=== PATIENT | female | born 1945 | race Caucasian/White ===

== ENCOUNTER 2018-06-11 09:43 | Inpatient (IN) | payer OTHER ==
[2018-06-11] MEDS: SOD CHLORIDE 0.9% 1,000 ML IV ×2 (10:17→12:10)
[2018-06-11] MEDS: METHYLPREDNISOLONE 125 MG INJ IV ×3 (10:17→22:01)
[2018-06-11] MEDS: IPRATROPIUM (NEB) 0.5 MG/2.5 ML AMP INH (10:21)
[2018-06-11] MEDS: ALBUTEROL 0.5% (NEB) 2.5 MG/0.5 ML AMP INH (10:22)
[2018-06-11 10:45] LABS: ADD MAN DIFF? NO
[2018-06-11 10:50] LABS: WHITE BLOOD COUNT 10.3 10^3/ul (4.8-10.8)
[2018-06-11 10:50] LABS: BASOPHIL # 0.1 10^3/ul (0.0-0.1); BASOPHILS % 0.8 % (0.0-2.0); EOSINOPHILS # 0.5 10^3/ul (0.0-0.5); EOSINOPHILS % 5.1 % (0.0-7.0); HEMATOCRIT 37.9 % (37.0-47.0); HEMOGLOBIN 12.5 g/dl (12.0-16.0); LYMPHOCYTES # 3.4 10^3/ul (0.8-2.9); LYMPHOCYTES % 33.2 % (15.0-51.0); MEAN CORPUSCULAR HEMOGLOBIN 30.3 pg (29.0-33.0); MEAN PLATELET VOLUME 10.1 fl (7.4-10.4); MONOCYTE # 0.5 10^3/ul (0.3-0.9); MONOCYTES % 5.1 % (0.0-11.0); NEUTROPHIL # 5.7 10^3/ul (1.6-7.5); NEUTROPHILS % 55.3 % (39.0-77.0); PLATELET COUNT 349 10^3/UL (140-415); RED BLOOD COUNT 4.12 10^6/ul (4.20-5.40)
[2018-06-11 11:08] LABS: ALANINE AMINOTRANSFERASE 26 IU/L (13-69); ALBUMIN 3.8 g/dl (3.3-4.9); ALBUMIN/GLOBULIN RATIO 1.08; ALKALINE PHOSPHATASE 123 IU/L (42-121); ANION GAP 12 (8-16); ASPARTATE AMINO TRANSFERASE 19 IU/L (15-46); BILIRUBIN,INDIRECT 0.3 mg/dl (0-1.1); BILIRUBIN,TOTAL 0.3 mg/dl (0.2-1.3); BLOOD UREA NITROGEN 16 mg/dl (7-20); CARBON DIOXIDE 28 mmol/L (21-31); CHLORIDE 108 mmol/L (97-110); CREATININE 0.73 mg/dl (0.44-1.00); GLUCOSE 115 mg/dl (70-220); INR 0.92; PARTIAL THROMBOPLASTIN TIME 27.9 Sec (23.0-35.0); POTASSIUM 4.3 mmol/L (3.5-5.1); PROTIME 12.4 Sec (11.9-14.9); SODIUM 144 mmol/L (135-144); TOTAL PROTEIN 7.3 g/dl (6.1-8.1)
[2018-06-11 11:18] LABS: TROPONIN-I < 0.012 ng/ml (0.000-0.120)
[2018-06-11] MEDS ORDERED: ACETAMINOPHEN 325 MG TAB PO (12:00)
[2018-06-11] MEDS ORDERED: ONDANSETRON 4 MG INJ IV ×2 (12:00→12:30)
[2018-06-11] MEDS: MAGNESIUM SULFATE 2 GM/50 ML 50 ML IVPB (12:10)
[2018-06-11] MEDS ORDERED: ALBUTEROL/IPRATROPIUM (NEB) 3 ML AMP HHN (12:30)
[2018-06-11] MEDS ORDERED: NACL 0.9% 3 ML SYG IV (12:30)
[2018-06-11] MEDS ORDERED: ACETAMINOPHEN 650 MG SUPP PR (12:30)
[2018-06-11 12:47] LABS: Allen Test ACCEPTAB; Arterial Base Excess -2.5 mmol/L (-3.0-3); Arterial Blood Gas Oxygen Sat 98.4 mmHG (95.0-100.0); Arterial COHb 0.1 % (0.0-3.0); Arterial Fraction of Oxyhgb 98.1 % (93.0-99.0); Arterial HCO3 23.6 mmol/L (22.0-26.0); Arterial MetHb 0.2 % (0.0-1.5); Arterial Total Hemglobin 13.2 g/dl (12.0-18.0); Arterial pCO2 46.2 mmhg (35-45); Blood Gas PS 5; MODE MASK - BIPAP; Site Right Radial
[2018-06-11] MEDS: ALBUTEROL/IPRATROPIUM (NEB) 3 ML AMP HHN ×3 (13:00→21:16)
[2018-06-11] MEDS: FUROSEMIDE 40 MG INJ IV (15:59)
[2018-06-11] MEDS: FAMOTIDINE 20 MG INJ IV (20:31)
[2018-06-11] MEDS: ATORVASTATIN 40 MG TAB PO (20:31)
[2018-06-11] MEDS: CILOSTAZOL 100 MG TAB PO (20:31)
[2018-06-11] MEDS: MONTELUKAST 10 MG TAB PO (20:31)
[2018-06-11] MEDS: EZETIMIBE 10 MG TAB PO (20:31)
[2018-06-12] MEDS: ALBUTEROL/IPRATROPIUM (NEB) 3 ML AMP HHN ×6 (01:30→20:05)
[2018-06-12 06:11] LABS: ADD MAN DIFF? NO
[2018-06-12 06:14] LABS: BASOPHILS % 0.1 % (0.0-2.0); HEMOGLOBIN 11.7 g/dl (12.0-16.0); LYMPHOCYTES # 0.9 10^3/ul (0.8-2.9); LYMPHOCYTES % 10.5 % (15.0-51.0); MEAN CORPUSCULAR HEMOGLOBIN 30.4 pg (29.0-33.0); MEAN CORPUSCULAR HGB CONC 33.4 g/dl (32.0-37.0); MEAN CORPUSCULAR VOLUME 90.9 fl (82.0-101.0); MEAN PLATELET VOLUME 10.2 fl (7.4-10.4); MONOCYTE # 0.2 10^3/ul (0.3-0.9); NEUTROPHIL # 7.2 10^3/ul (1.6-7.5); NEUTROPHILS % 85.9 % (39.0-77.0); PLATELET COUNT 345 10^3/UL (140-415); RED BLOOD COUNT 3.85 10^6/ul (4.20-5.40); RED CELL DISTRIBUTION WIDTH 13.2 % (11.5-14.5)
[2018-06-12 06:14] LABS: WHITE BLOOD COUNT 8.4 10^3/ul (4.8-10.8)
[2018-06-12] MEDS: METHYLPREDNISOLONE 125 MG INJ IV (06:21)
[2018-06-12 06:31] LABS: HEMOGLOBIN A1C 5.8 % (0-5.9)
[2018-06-12 06:55] LABS: ALANINE AMINOTRANSFERASE 18 IU/L (13-69); ALBUMIN 3.8 g/dl (3.3-4.9); ALBUMIN/GLOBULIN RATIO 1.15; ALKALINE PHOSPHATASE 114 IU/L (42-121); ANION GAP 14 (8-16); ASPARTATE AMINO TRANSFERASE 19 IU/L (15-46); BILIRUBIN,INDIRECT 0.2 mg/dl (0-1.1); BILIRUBIN,TOTAL 0.2 mg/dl (0.2-1.3); BLOOD UREA NITROGEN 23 mg/dl (7-20); CARBON DIOXIDE 27 mmol/L (21-31); CHLORIDE 105 mmol/L (97-110); CHOL/HDL RATIO 2.4 RATIO; CHOLESTEROL 156 mg/dl (100-200); CREATININE 0.78 mg/dl (0.44-1.00); GLUCOSE 209 mg/dl (70-220); HDL CHOLESTEROL 63 mg/dl (33-92); LDL CHOLESTEROL,CALCULATED 83 mg/dl; MAGNESIUM 2.4 mg/dl (1.7-2.5); POTASSIUM 4.5 mmol/L (3.5-5.1); SODIUM 141 mmol/L (135-144); TOTAL PROTEIN 7.1 g/dl (6.1-8.1); TRIGLYCERIDES 51 mg/dl (0-149)
[2018-06-12] MEDS: FUROSEMIDE 40 MG INJ IV (08:51)
[2018-06-12] MEDS: CILOSTAZOL 100 MG TAB PO ×2 (08:52→20:54)
[2018-06-12] MEDS: LOSARTAN 50 MG TAB PO (08:52)
[2018-06-12] MEDS: ENOXAPARIN 40 MG/0.4 ML SYG SC (09:01)
[2018-06-12] MEDS: ACETAMINOPHEN 325 MG TAB PO (09:05)
[2018-06-12 11:17] LABS: THYROID STIMULATING HORMONE 0.441 MIU/L (0.465-4.680)
[2018-06-12] MEDS: FUROSEMIDE 20 MG INJ IV (13:35)
[2018-06-12] MEDS: FLUTICASONE/VILANTEROL 200-25 INH DEVICE INH (13:35)
[2018-06-12] MEDS: FAMOTIDINE 20 MG INJ IV (20:53)
[2018-06-12] MEDS: ATORVASTATIN 40 MG TAB PO (20:54)
[2018-06-12] MEDS: MONTELUKAST 10 MG TAB PO (20:54)
[2018-06-12] MEDS: EZETIMIBE 10 MG TAB PO (20:54)
[2018-06-12] MEDS: METHYLPREDNISOLONE 40 MG INJ IV (20:54)
[2018-06-13] MEDS: ALBUTEROL/IPRATROPIUM (NEB) 3 ML AMP HHN ×3 (01:00→09:08)
[2018-06-13 06:02] LABS: ADD MAN DIFF? NO
[2018-06-13 06:08] LABS: WHITE BLOOD COUNT 15.8 10^3/ul (4.8-10.8)
[2018-06-13 06:08] LABS: BASOPHILS % 0.1 % (0.0-2.0); HEMATOCRIT 33.7 % (37.0-47.0); HEMOGLOBIN 11.3 g/dl (12.0-16.0); LYMPHOCYTES # 1.2 10^3/ul (0.8-2.9); LYMPHOCYTES % 7.3 % (15.0-51.0); MEAN CORPUSCULAR HEMOGLOBIN 30.7 pg (29.0-33.0); MEAN CORPUSCULAR HGB CONC 33.5 g/dl (32.0-37.0); MEAN CORPUSCULAR VOLUME 91.6 fl (82.0-101.0); MEAN PLATELET VOLUME 10.3 fl (7.4-10.4); MONOCYTE # 0.5 10^3/ul (0.3-0.9); MONOCYTES % 3.1 % (0.0-11.0); NEUTROPHIL # 13.9 10^3/ul (1.6-7.5); NEUTROPHILS % 87.9 % (39.0-77.0); PLATELET COUNT 334 10^3/UL (140-415); RED BLOOD COUNT 3.68 10^6/ul (4.20-5.40); RED CELL DISTRIBUTION WIDTH 13.3 % (11.5-14.5)
[2018-06-13 06:30] LABS: ANION GAP 13 (8-16); BLOOD UREA NITROGEN 43 mg/dl (7-20); CALCIUM 9.9 mg/dl (8.4-10.2); CARBON DIOXIDE 25 mmol/L (21-31); CHLORIDE 109 mmol/L (97-110); CREATININE 1.22 mg/dl (0.44-1.00); GLUCOSE 237 mg/dl (70-220); MAGNESIUM 2.3 mg/dl (1.7-2.5); PHOSPHORUS 3.1 mg/dl (2.5-4.9); POTASSIUM 4.9 mmol/L (3.5-5.1); SODIUM 142 mmol/L (135-144)
[2018-06-13] MEDS: CILOSTAZOL 100 MG TAB PO (08:51)
[2018-06-13] MEDS: METHYLPREDNISOLONE 40 MG INJ IV (08:51)
[2018-06-13] MEDS: ENOXAPARIN 40 MG/0.4 ML SYG SC (08:56)
[2018-06-13] MEDS: FLUTICASONE/VILANTEROL 200-25 INH DEVICE INH (09:00)
[2018-06-13] MEDS: LOSARTAN 50 MG TAB PO (09:59)
[2018-06-13] MEDS: FUROSEMIDE 40 MG INJ IV (10:00)
== END 2018-06-13 11:10 | disposition home or self-care (01) | DRG 189 ==
LOC: E/R 09:43 → 6WM 11:50
PROC: 5A09357 Assistance with Respiratory Ventilation, Less than 24 Consecutive Hours, Continuous Positive Airway Pressure (ICD-10-PCS; principal; 2018-06-11)
DX: J96.01 Acute respiratory failure with hypoxia (principal); J45.41 Moderate persistent asthma with (acute) exacerbation; I73.9 Peripheral vascular disease, unspecified; E66.9 Obesity, unspecified; I10 Essential (primary) hypertension; E78.5 Hyperlipidemia, unspecified; I51.89 Other ill-defined heart diseases; J40 Bronchitis, not specified as acute or chronic; Z68.30 Body mass index [BMI] 30.0-30.9, adult
CPT/HCPCS: 36600; 71045; 80048; 80053; 80061; 82803; 83036; 83735; 84100; 84443; 84484; 85025; 85610; 85730; 93005; 93306; 94640; 94644; 94660; 96374; 99291-25

== ENCOUNTER 2018-07-26 17:13 | Emergency (ER) | payer OTHER ==
[2018-07-26] MEDS: ALBUTEROL 0.5% (NEB) 2.5 MG/0.5 ML AMP INH (18:25)
[2018-07-26] MEDS: METHYLPREDNISOLONE 125 MG INJ IV (18:31)
[2018-07-26] MEDS: SOD CHLORIDE 0.9% 1,000 ML IV (18:32)
[2018-07-26] MEDS: CEFTRIAXONE 1 GM/50 ML (PMX) 50 ML IVPB (19:25)
== END 2018-07-26 20:25 | disposition home or self-care (01) ==
LOC: FTE 17:13
DX: J45.901 Unspecified asthma with (acute) exacerbation (principal); R06.02 Shortness of breath
CPT/HCPCS: 71045; 93005; 94644; 96361; 96365; 96375; 99284-25

== ENCOUNTER 2018-08-12 19:49 | Inpatient (IN) | payer OTHER ==
[2018-08-12] MEDS ORDERED: ALBUTEROL 0.083% (NEB) 2.5 MG/3 ML AMP NEB (20:25)
[2018-08-12] MEDS: ALBUTEROL 0.5% (NEB) 2.5 MG/0.5 ML AMP INH (20:35)
[2018-08-12] MEDS: IPRATROPIUM (NEB) 0.5 MG/2.5 ML AMP NEB (20:35)
[2018-08-12] MEDS: METHYLPREDNISOLONE 125 MG INJ IV (20:53)
[2018-08-12 21:01] LABS: ADD MAN DIFF? NO
[2018-08-12 21:05] LABS: BASOPHIL # 0.1 10^3/ul (0.0-0.1); BASOPHILS % 0.7 % (0.0-2.0); EOSINOPHILS # 0.4 10^3/ul (0.0-0.5); HEMATOCRIT 35.5 % (37.0-47.0); HEMOGLOBIN 11.9 g/dl (12.0-16.0); LYMPHOCYTES # 1.4 10^3/ul (0.8-2.9); LYMPHOCYTES % 19.7 % (15.0-51.0); MEAN CORPUSCULAR HEMOGLOBIN 30.5 pg (29.0-33.0); MEAN CORPUSCULAR HGB CONC 33.5 g/dl (32.0-37.0); MONOCYTE # 0.9 10^3/ul (0.3-0.9); NEUTROPHIL # 4.4 10^3/ul (1.6-7.5); NEUTROPHILS % 61.6 % (39.0-77.0); PLATELET COUNT 355 10^3/UL (140-415); RED CELL DISTRIBUTION WIDTH 13.2 % (11.5-14.5)
[2018-08-12 21:05] LABS: WHITE BLOOD COUNT 7.1 10^3/ul (4.8-10.8)
[2018-08-12 21:22] LABS: ANION GAP 9 (5-13); BLOOD UREA NITROGEN 16 mg/dl (7-20); CALCIUM 10.2 mg/dl (8.4-10.2); CARBON DIOXIDE 28 mmol/L (21-31); CHLORIDE 105 mmol/L (97-110); CREATININE 0.79 mg/dl (0.44-1.00); GLUCOSE 145 mg/dl (70-220); POTASSIUM 4.7 mmol/L (3.5-5.1); SODIUM 142 mmol/L (135-144)
[2018-08-12 21:34] LABS: TROPONIN-I < 0.012 ng/ml (0.000-0.120)
[2018-08-12] MEDS: LEVALBUTEROL (NEB) 1.25 MG/0.5 ML AMP INH (21:42)
[2018-08-12] MEDS: MAGNESIUM SULFATE 2 GM/50 ML 50 ML IVPB (23:11)
[2018-08-12] MEDS: AZITHROMYCIN 500MG/NS (PMX) 250 ML IVPB (23:18)
[2018-08-13] MEDS: IOHEXOL 300MG/ML 150 ML BTL (00:16)
[2018-08-13] MEDS: SOD CHLORIDE 0.9% 100 ML (00:16)
[2018-08-13] MEDS ORDERED: ACETAMINOPHEN 325 MG TAB PO (00:30)
[2018-08-13] MEDS ORDERED: ONDANSETRON 4 MG INJ IV (00:30)
[2018-08-13] MEDS ORDERED: NACL 0.9% 3 ML SYG IV (00:30)
[2018-08-13] MEDS: GUAIFENESIN/CODEINE 5ML CUP PO (04:42)
[2018-08-13 05:31] LABS: ADD MAN DIFF? NO
[2018-08-13 05:35] LABS: ABNORMAL IP MESSAGE 1; BASOPHILS % 0.3 % (0.0-2.0); HEMATOCRIT 33.7 % (37.0-47.0); HEMOGLOBIN 11.2 g/dl (12.0-16.0); LYMPHOCYTES # 0.2 10^3/ul (0.8-2.9); LYMPHOCYTES % 2.4 % (15.0-51.0); MEAN CORPUSCULAR HGB CONC 33.2 g/dl (32.0-37.0); MEAN CORPUSCULAR VOLUME 90.3 fl (82.0-101.0); MEAN PLATELET VOLUME 10.2 fl (7.4-10.4); MONOCYTES % 0.5 % (0.0-11.0); NEUTROPHIL # 7.5 10^3/ul (1.6-7.5); PLATELET COUNT 327 10^3/UL (140-415); RED BLOOD COUNT 3.73 10^6/ul (4.20-5.40); RED CELL DISTRIBUTION WIDTH 13.2 % (11.5-14.5)
[2018-08-13 05:35] LABS: WHITE BLOOD COUNT 7.8 10^3/ul (4.8-10.8)
[2018-08-13 05:43] LABS: POSITIVE DIFF @See below
[2018-08-13 06:40] LABS: ALANINE AMINOTRANSFERASE 18 IU/L (13-69); ALBUMIN 4.1 g/dl (3.3-4.9); ALBUMIN/GLOBULIN RATIO 1.64; ALKALINE PHOSPHATASE 98 IU/L (42-121); ANION GAP 15 (5-13); ASPARTATE AMINO TRANSFERASE 26 IU/L (15-46); BILIRUBIN,INDIRECT 0.2 mg/dl (0-1.1); BILIRUBIN,TOTAL 0.2 mg/dl (0.2-1.3); BLOOD UREA NITROGEN 15 mg/dl (7-20); CALCIUM 9.9 mg/dl (8.4-10.2); CARBON DIOXIDE 22 mmol/L (21-31); CHLORIDE 104 mmol/L (97-110); CREATININE 0.71 mg/dl (0.44-1.00); GLUCOSE 285 mg/dl (70-220); POTASSIUM 4.5 mmol/L (3.5-5.1); SODIUM 141 mmol/L (135-144); TOTAL PROTEIN 6.6 g/dl (6.1-8.1)
[2018-08-13 06:58] LABS: THYROID STIMULATING HORMONE 0.653 MIU/L (0.465-4.680)
[2018-08-13] MEDS ORDERED: HEPARIN 5,000 UNIT/0.5 ML VIAL ×2 (08:31→20:03)
[2018-08-13] MEDS: HEPARIN 5,000 UNIT/1 ML VIAL SC ×2 (08:53→20:28)
[2018-08-13] MEDS: METHYLPREDNISOLONE 125 MG INJ IV ×4 (08:54→23:18)
[2018-08-13] MEDS ORDERED: METHYLPREDNISOLONE 125 MG INJ IV (09:00)
[2018-08-13] MEDS: LEVALBUTEROL (NEB) 0.63 MG/3 ML AMP HHN ×4 (09:48→20:04)
[2018-08-13] MEDS: IPRATROPIUM (NEB) 0.5 MG/2.5 ML AMP NEB ×4 (09:48→20:04)
[2018-08-13] MEDS: CILOSTAZOL 100 MG TAB PO ×2 (12:51→20:27)
[2018-08-13] MEDS: ATORVASTATIN 40 MG TAB PO (20:27)
[2018-08-13] MEDS: EZETIMIBE 10 MG TAB PO (20:27)
[2018-08-13] MEDS ORDERED: NON-FORMULARY/PATIENT OWN MED (Rosuvastatin Calcium* (Crestor*) 10 MG) PO (21:00)
[2018-08-14] MEDS: IPRATROPIUM (NEB) 0.5 MG/2.5 ML AMP NEB ×4 (00:33→11:40)
[2018-08-14] MEDS: LEVALBUTEROL (NEB) 0.63 MG/3 ML AMP HHN ×4 (00:33→11:40)
[2018-08-14] MEDS: METHYLPREDNISOLONE 125 MG INJ IV ×3 (05:57→22:32)
[2018-08-14 06:46] LABS: ADD MAN DIFF? NO
[2018-08-14 06:56] LABS: ABNORMAL IP MESSAGE 1; BASOPHILS % 0.2 % (0.0-2.0); HEMATOCRIT 32.4 % (37.0-47.0); HEMOGLOBIN 10.9 g/dl (12.0-16.0); LYMPHOCYTES # 0.6 10^3/ul (0.8-2.9); LYMPHOCYTES % 5.4 % (15.0-51.0); MEAN CORPUSCULAR HEMOGLOBIN 30.4 pg (29.0-33.0); MEAN CORPUSCULAR HGB CONC 33.6 g/dl (32.0-37.0); MEAN CORPUSCULAR VOLUME 90.3 fl (82.0-101.0); MEAN PLATELET VOLUME 10.4 fl (7.4-10.4); MONOCYTE # 0.4 10^3/ul (0.3-0.9); MONOCYTES % 3.5 % (0.0-11.0); NEUTROPHIL # 9.9 10^3/ul (1.6-7.5); NEUTROPHILS % 89.6 % (39.0-77.0); PLATELET COUNT 343 10^3/UL (140-415); RED BLOOD COUNT 3.59 10^6/ul (4.20-5.40); RED CELL DISTRIBUTION WIDTH 13.3 % (11.5-14.5)
[2018-08-14 07:00] LABS: POSITIVE DIFF @See below
[2018-08-14 07:45] LABS: ANION GAP 11 (5-13); BLOOD UREA NITROGEN 21 mg/dl (7-20); CALCIUM 9.9 mg/dl (8.4-10.2); CARBON DIOXIDE 25 mmol/L (21-31); CHLORIDE 105 mmol/L (97-110); CREATININE 0.78 mg/dl (0.44-1.00); GLUCOSE 339 mg/dl (70-220); MAGNESIUM 2.2 mg/dl (1.7-2.5); PHOSPHORUS 2.9 mg/dl (2.5-4.9); POTASSIUM 4.7 mmol/L (3.5-5.1); SODIUM 141 mmol/L (135-144)
[2018-08-14] MEDS ORDERED: HEPARIN 5,000 UNIT/0.5 ML VIAL ×2 (07:51→20:15)
[2018-08-14] MEDS: CILOSTAZOL 100 MG TAB PO ×2 (08:01→20:38)
[2018-08-14] MEDS: HEPARIN 5,000 UNIT/1 ML VIAL SC ×2 (08:09→21:15)
[2018-08-14] MEDS: METOPROLOL 25 MG TAB PO ×2 (13:13→20:38)
[2018-08-14] MEDS: LOSARTAN 50 MG TAB PO (13:13)
[2018-08-14 15:00] LABS: B-TYPE NATRIURETIC PEPTIDE 1610 PG/ML (0-125)
[2018-08-14] MEDS: CEPASTAT LOZENGE MT (15:40)
[2018-08-14] MEDS: FUROSEMIDE 40 MG INJ IV (17:28)
[2018-08-14] MEDS: ATORVASTATIN 40 MG TAB PO (20:37)
[2018-08-14] MEDS: EZETIMIBE 10 MG TAB PO (20:38)
[2018-08-14] MEDS: LOPERAMIDE 2 MG CAP PO (20:39)
[2018-08-15] MEDS: LEVALBUTEROL (NEB) 0.63 MG/3 ML AMP HHN ×3 (04:31→13:40)
[2018-08-15] MEDS: IPRATROPIUM (NEB) 0.5 MG/2.5 ML AMP NEB ×3 (04:31→13:40)
[2018-08-15] MEDS: METHYLPREDNISOLONE 125 MG INJ IV ×2 (05:12→14:15)
[2018-08-15 06:19] LABS: ADD MAN DIFF? NO
[2018-08-15 06:27] LABS: BASOPHILS % 0.1 % (0.0-2.0); HEMATOCRIT 34.4 % (37.0-47.0); HEMOGLOBIN 11.5 g/dl (12.0-16.0); LYMPHOCYTES # 0.7 10^3/ul (0.8-2.9); LYMPHOCYTES % 4.8 % (15.0-51.0); MEAN CORPUSCULAR HEMOGLOBIN 30.3 pg (29.0-33.0); MEAN CORPUSCULAR HGB CONC 33.4 g/dl (32.0-37.0); MEAN CORPUSCULAR VOLUME 90.8 fl (82.0-101.0); MEAN PLATELET VOLUME 10.5 fl (7.4-10.4); MONOCYTE # 0.3 10^3/ul (0.3-0.9); MONOCYTES % 2.3 % (0.0-11.0); NEUTROPHIL # 13.3 10^3/ul (1.6-7.5); NEUTROPHILS % 91.7 % (39.0-77.0); PLATELET COUNT 386 10^3/UL (140-415); RED BLOOD COUNT 3.79 10^6/ul (4.20-5.40); RED CELL DISTRIBUTION WIDTH 13.4 % (11.5-14.5)
[2018-08-15 06:27] LABS: WHITE BLOOD COUNT 14.6 10^3/ul (4.8-10.8)
[2018-08-15 06:58] LABS: ANION GAP 12 (5-13); BLOOD UREA NITROGEN 32 mg/dl (7-20); CARBON DIOXIDE 27 mmol/L (21-31); CHLORIDE 103 mmol/L (97-110); CREATININE 0.87 mg/dl (0.44-1.00); GLUCOSE 270 mg/dl (70-220); POTASSIUM 4.3 mmol/L (3.5-5.1); SODIUM 142 mmol/L (135-144)
[2018-08-15] MEDS ORDERED: HEPARIN 5,000 UNIT/0.5 ML VIAL (07:59)
[2018-08-15] MEDS: CILOSTAZOL 100 MG TAB PO (08:08)
[2018-08-15] MEDS: METOPROLOL 25 MG TAB PO (08:09)
[2018-08-15] MEDS: LOSARTAN 50 MG TAB PO (08:09)
[2018-08-15] MEDS: HEPARIN 5,000 UNIT/1 ML VIAL SC (08:12)
== END 2018-08-15 15:38 | disposition home or self-care (01) | DRG 203 ==
LOC: 6WM 23:17 → FTE 19:49
DX: J45.901 Unspecified asthma with (acute) exacerbation (principal); E78.5 Hyperlipidemia, unspecified; I73.9 Peripheral vascular disease, unspecified; R00.0 Tachycardia, unspecified
CPT/HCPCS: 71045; 71275; 80048; 80053; 83735; 83880; 84100; 84443; 84484; 85025; 87081; 93005; 94640; 94644; 94645; 94664; 96374; 96375; 97161; 97165; 99285-25; G0378

== ENCOUNTER 2018-09-09 08:17 | Inpatient (IN) | payer OTHER ==
[2018-09-09 10:24] LABS: ADD MAN DIFF? NO
[2018-09-09 10:25] LABS: WHITE BLOOD COUNT 6.8 10^3/ul (4.8-10.8)
[2018-09-09 10:25] LABS: BASOPHIL # 0.1 10^3/ul (0.0-0.1); EOSINOPHILS # 0.4 10^3/ul (0.0-0.5); HEMATOCRIT 37.8 % (37.0-47.0); HEMOGLOBIN 12.4 g/dl (12.0-16.0); LYMPHOCYTES # 1.5 10^3/ul (0.8-2.9); LYMPHOCYTES % 21.8 % (15.0-51.0); MEAN CORPUSCULAR HEMOGLOBIN 30.4 pg (29.0-33.0); MEAN CORPUSCULAR HGB CONC 32.8 g/dl (32.0-37.0); MEAN CORPUSCULAR VOLUME 92.6 fl (82.0-101.0); MEAN PLATELET VOLUME 9.7 fl (7.4-10.4); MONOCYTE # 0.5 10^3/ul (0.3-0.9); MONOCYTES % 6.7 % (0.0-11.0); NEUTROPHIL # 4.3 10^3/ul (1.6-7.5); NEUTROPHILS % 63.3 % (39.0-77.0); PLATELET COUNT 385 10^3/UL (140-415); RED BLOOD COUNT 4.08 10^6/ul (4.20-5.40); RED CELL DISTRIBUTION WIDTH 13.3 % (11.5-14.5)
[2018-09-09 10:43] LABS: ALANINE AMINOTRANSFERASE 19 IU/L (13-69); ALBUMIN 4.3 g/dl (3.3-4.9); ALBUMIN/GLOBULIN RATIO 1.34; ALKALINE PHOSPHATASE 131 IU/L (42-121); ANION GAP 8 (5-13); ASPARTATE AMINO TRANSFERASE 19 IU/L (15-46); BILIRUBIN,INDIRECT 0.2 mg/dl (0-1.1); BILIRUBIN,TOTAL 0.2 mg/dl (0.2-1.3); BLOOD UREA NITROGEN 10 mg/dl (7-20); CARBON DIOXIDE 27 mmol/L (21-31); CHLORIDE 108 mmol/L (97-110); CREATININE 0.55 mg/dl (0.44-1.00); GLUCOSE 138 mg/dl (70-220); POTASSIUM 4.2 mmol/L (3.5-5.1); SODIUM 143 mmol/L (135-144); TOTAL PROTEIN 7.5 g/dl (6.1-8.1)
[2018-09-09 10:45] LABS: INR 0.84; PARTIAL THROMBOPLASTIN TIME 24.7 Sec (23.0-35.0); PROTIME 11.6 Sec (11.9-14.9); PT RATIO 0.9
[2018-09-09 10:54] LABS: B-TYPE NATRIURETIC PEPTIDE 305 PG/ML (0-125); TROPONIN-I < 0.012 ng/ml (0.000-0.120)
[2018-09-09] MEDS: SOD CHLORIDE 0.9% 1,000 ML IV ×2 (11:49→18:02)
[2018-09-09] MEDS: DEXAMETHASONE 10 MG/ML 1 ML INJ IM (12:12)
[2018-09-09] MEDS: IPRATROPIUM (NEB) 0.5 MG/2.5 ML AMP NEB (12:13)
[2018-09-09] MEDS: ALBUTEROL 0.5% (NEB) 2.5 MG/0.5 ML AMP INH (12:13)
[2018-09-09] MEDS ORDERED: AZITHROMYCIN 500MG/NS (PMX) 250 ML IV (13:33)
[2018-09-09] MEDS: CEFTRIAXONE 1 GM/50 ML (PMX) 50 ML IVPB (13:52)
[2018-09-09] MEDS ORDERED: ACETAMINOPHEN 325 MG TAB PO (14:30)
[2018-09-09] MEDS ORDERED: LEVALBUTEROL (NEB) 1.25 MG/0.5 ML AMP HHN (14:30)
[2018-09-09] MEDS ORDERED: NACL 0.9% 3 ML SYG IV (14:30)
[2018-09-09] MEDS ORDERED: HYDROCODONE/APAP (5/325) TAB PO (14:30)
[2018-09-09] MEDS ORDERED: ONDANSETRON 4 MG INJ IV (14:30)
[2018-09-09] MEDS: AZITHROMYCIN 500MG/NS (PMX) 250 ML IVPB (14:47)
[2018-09-09] MEDS: LEVALBUTEROL (NEB) 1.25 MG/0.5 ML AMP HHN ×2 (15:37→20:00)
[2018-09-09] MEDS: BUDESONIDE (NEB) 0.5MG/2ML AMP HHN (20:00)
[2018-09-09 20:46] LABS: LACTIC ACID 6.6 mmol/L (0.5-2.0)
[2018-09-09] MEDS: CILOSTAZOL 100 MG TAB PO (21:00)
[2018-09-09] MEDS: METHYLPREDNISOLONE 40 MG INJ IV (21:47)
[2018-09-09] MEDS: ATORVASTATIN 10 MG TAB PO (21:47)
[2018-09-09] MEDS: FAMOTIDINE 20 MG TAB PO (21:47)
[2018-09-09] MEDS: EZETIMIBE 10 MG TAB PO (21:47)
[2018-09-09] MEDS: MONTELUKAST 10 MG TAB PO (21:47)
[2018-09-09] MEDS: SOD CHLORIDE 0.9% 500 ML IV (21:47)
[2018-09-10] MEDS: LEVALBUTEROL (NEB) 1.25 MG/0.5 ML AMP HHN ×4 (02:00→19:35)
[2018-09-10 02:21] LABS: LACTIC ACID 3.4 mmol/L (0.5-2.0)
[2018-09-10 06:13] LABS: ADD MAN DIFF? NO
[2018-09-10] MEDS: SOD CHLORIDE 0.9% 1,000 ML IV ×2 (06:14→14:35)
[2018-09-10 06:16] LABS: WHITE BLOOD COUNT 6.9 10^3/ul (4.8-10.8)
[2018-09-10 06:16] LABS: BASOPHILS % 0.4 % (0.0-2.0); HEMATOCRIT 33.5 % (37.0-47.0); HEMOGLOBIN 11.3 g/dl (12.0-16.0); LYMPHOCYTES # 0.8 10^3/ul (0.8-2.9); LYMPHOCYTES % 11.4 % (15.0-51.0); MEAN CORPUSCULAR HEMOGLOBIN 30.9 pg (29.0-33.0); MEAN CORPUSCULAR HGB CONC 33.7 g/dl (32.0-37.0); MEAN CORPUSCULAR VOLUME 91.5 fl (82.0-101.0); MEAN PLATELET VOLUME 9.9 fl (7.4-10.4); MONOCYTE # 0.3 10^3/ul (0.3-0.9); MONOCYTES % 3.9 % (0.0-11.0); NEUTROPHIL # 5.7 10^3/ul (1.6-7.5); NEUTROPHILS % 83.1 % (39.0-77.0); PLATELET COUNT 361 10^3/UL (140-415); RED BLOOD COUNT 3.66 10^6/ul (4.20-5.40); RED CELL DISTRIBUTION WIDTH 13.5 % (11.5-14.5)
[2018-09-10 06:24] LABS: HEMOGLOBIN A1C 8.1 % (0-5.9)
[2018-09-10 06:44] LABS: ALANINE AMINOTRANSFERASE 17 IU/L (13-69); ALBUMIN 3.6 g/dl (3.3-4.9); ALBUMIN/GLOBULIN RATIO 1.33; ALKALINE PHOSPHATASE 99 IU/L (42-121); ANION GAP 9 (5-13); ASPARTATE AMINO TRANSFERASE 15 IU/L (15-46); BILIRUBIN,INDIRECT 0.1 mg/dl (0-1.1); BILIRUBIN,TOTAL 0.1 mg/dl (0.2-1.3); BLOOD UREA NITROGEN 14 mg/dl (7-20); CALCIUM 10.1 mg/dl (8.4-10.2); CARBON DIOXIDE 25 mmol/L (21-31); CHLORIDE 110 mmol/L (97-110); CREATININE 0.63 mg/dl (0.44-1.00); GLUCOSE 278 mg/dl (70-220); MAGNESIUM 2.2 mg/dl (1.7-2.5); POTASSIUM 5.3 mmol/L (3.5-5.1); SODIUM 144 mmol/L (135-144); TOTAL PROTEIN 6.3 g/dl (6.1-8.1)
[2018-09-10 06:49] LABS: LACTIC ACID 2.3 mmol/L (0.5-2.0)
[2018-09-10] MEDS: BUDESONIDE (NEB) 0.5MG/2ML AMP HHN ×2 (08:09→19:35)
[2018-09-10] MEDS: FAMOTIDINE 20 MG TAB PO ×2 (09:55→20:46)
[2018-09-10] MEDS: METHYLPREDNISOLONE 40 MG INJ IV (09:55)
[2018-09-10] MEDS: LOSARTAN 50 MG TAB PO (09:56)
[2018-09-10] MEDS: CILOSTAZOL 100 MG TAB PO ×2 (13:00→20:46)
[2018-09-10 13:50] LABS: ADD UMIC YES; UR ASCORBIC ACID NEGATIVE (NEGATIVE); UR BILIRUBIN (Dip) NEGATIVE (NEGATIVE); UR BLOOD (Dip) 1+ mg/dL (NEGATIVE); UR CLARITY CLEAR (CLEAR); UR COLOR COLORLESS (YELLOW); UR GLUCOSE (Dip) 3+ mg/dL (NEGATIVE); UR KETONES (Dip) NEGATIVE (NEGATIVE); UR LEUKOCYTE ESTERASE (Dip) NEGATIVE Leu/ul (NEGATIVE); UR NITRITE (Dip) NEGATIVE (NEGATIVE); UR RBC 3 /HPF (0-5); UR SPECIFIC GRAVITY (Dip) 1.014 (1.003-1.030); UR TOTAL PROTEIN (Dip) NEGATIVE (NEGATIVE); UR UROBILINOGEN (Dip) NEGATIVE (NEGATIVE); UR WBC 0 /HPF (0-5)
[2018-09-10] MEDS: CEFTRIAXONE 1 GM/50 ML (PMX) 50 ML IVPB (14:31)
[2018-09-10] MEDS: AZITHROMYCIN 500MG/NS (PMX) 250 ML IVPB (16:00)
[2018-09-10] MEDS ORDERED: GLUCOSE GEL 15 GRAM TUBE BUCCAL (16:30)
[2018-09-10] MEDS ORDERED: GLUCAGON 1 MG INJ IM (16:30)
[2018-09-10] MEDS ORDERED: DEXTROSE 50% 50 ML SYRINGE IV ×2 (16:30)
[2018-09-10] MEDS ORDERED: GLUCOSE GEL 15 GRAM TUBE PO ×2 (16:30)
[2018-09-10] MEDS: metFORMIN 500 MG TAB PO (17:43)
[2018-09-10] MEDS: INSULIN ASPART [NOVOLOG] 3 ML PEN SC ×3 (17:48→23:46)
[2018-09-10] MEDS: EZETIMIBE 10 MG TAB PO (20:46)
[2018-09-10] MEDS: MONTELUKAST 10 MG TAB PO (20:46)
[2018-09-10] MEDS: ATORVASTATIN 10 MG TAB PO (20:46)
[2018-09-11] MEDS: SOD CHLORIDE 0.9% 1,000 ML IV ×3 (00:14→23:12)
[2018-09-11] MEDS: ACCU-CHEK XX (01:56)
[2018-09-11] MEDS: LEVALBUTEROL (NEB) 1.25 MG/0.5 ML AMP HHN ×4 (02:45→21:08)
[2018-09-11 06:01] LABS: ADD MAN DIFF? NO
[2018-09-11 06:32] LABS: LACTIC ACID 2.9 mmol/L (0.5-2.0)
[2018-09-11 06:46] LABS: ANION GAP 10 (5-13); BLOOD UREA NITROGEN 20 mg/dl (7-20); CALCIUM 10.3 mg/dl (8.4-10.2); CARBON DIOXIDE 25 mmol/L (21-31); CHLORIDE 107 mmol/L (97-110); CREATININE 0.78 mg/dl (0.44-1.00); GLUCOSE 201 mg/dl (70-220); MAGNESIUM 2.1 mg/dl (1.7-2.5); PHOSPHORUS 3.2 mg/dl (2.5-4.9); POTASSIUM 4.3 mmol/L (3.5-5.1); SODIUM 142 mmol/L (135-144)
[2018-09-11 06:59] LABS: BASOPHIL # 0.1 10^3/ul (0.0-0.1); BASOPHILS % 0.4 % (0.0-2.0); EOSINOPHILS % 0.3 % (0.0-7.0); HEMATOCRIT 31.5 % (37.0-47.0); HEMOGLOBIN 10.5 g/dl (12.0-16.0); LYMPHOCYTES # 1.8 10^3/ul (0.8-2.9); LYMPHOCYTES % 13.4 % (15.0-51.0); MEAN CORPUSCULAR HEMOGLOBIN 30.7 pg (29.0-33.0); MEAN CORPUSCULAR HGB CONC 33.3 g/dl (32.0-37.0); MEAN CORPUSCULAR VOLUME 92.1 fl (82.0-101.0); MEAN PLATELET VOLUME 10.6 fl (7.4-10.4); MONOCYTE # 1.1 10^3/ul (0.3-0.9); MONOCYTES % 8.6 % (0.0-11.0); NEUTROPHIL # 10.1 10^3/ul (1.6-7.5); NEUTROPHILS % 75.8 % (39.0-77.0); PLATELET COUNT 364 10^3/UL (140-415); RED BLOOD COUNT 3.42 10^6/ul (4.20-5.40); RED CELL DISTRIBUTION WIDTH 14.1 % (11.5-14.5)
[2018-09-11 06:59] LABS: WHITE BLOOD COUNT 13.3 10^3/ul (4.8-10.8)
[2018-09-11] MEDS: INSULIN ASPART [NOVOLOG] 3 ML PEN SC ×4 (07:49→20:40)
[2018-09-11] MEDS: FAMOTIDINE 20 MG TAB PO ×2 (08:39→20:30)
[2018-09-11] MEDS: LOSARTAN 50 MG TAB PO (08:39)
[2018-09-11] MEDS: CILOSTAZOL 100 MG TAB PO ×2 (08:39→20:30)
[2018-09-11] MEDS: metFORMIN 500 MG TAB PO ×2 (08:39→18:29)
[2018-09-11] MEDS: predniSONE 20 MG TAB PO (08:39)
[2018-09-11] MEDS: SOD CHLORIDE 0.45% 1,000 ML IV (09:30)
[2018-09-11] MEDS: BUDESONIDE (NEB) 0.5MG/2ML AMP HHN ×2 (10:20→20:58)
[2018-09-11] MEDS: AZITHROMYCIN 500MG/NS (PMX) 250 ML IVPB (14:37)
[2018-09-11] MEDS: LINAGLIPTIN 5 MG TABLET PO (14:37)
[2018-09-11] MEDS: CEFTRIAXONE 1 GM/50 ML (PMX) 50 ML IVPB (14:37)
[2018-09-11] MEDS: REPAGLINIDE 1 MG TAB PO (18:00)
[2018-09-11] MEDS: MONTELUKAST 10 MG TAB PO (20:30)
[2018-09-11] MEDS: EZETIMIBE 10 MG TAB PO (20:30)
[2018-09-11] MEDS: ATORVASTATIN 10 MG TAB PO (20:30)
[2018-09-12] MEDS: LEVALBUTEROL (NEB) 1.25 MG/0.5 ML AMP HHN ×4 (01:52→21:22)
[2018-09-12] MEDS: ACCU-CHEK XX (02:00)
[2018-09-12 05:14] LABS: ADD MAN DIFF? NO
[2018-09-12 05:17] LABS: BASOPHIL # 0.1 10^3/ul (0.0-0.1); BASOPHILS % 0.8 % (0.0-2.0); EOSINOPHILS # 0.3 10^3/ul (0.0-0.5); EOSINOPHILS % 2.5 % (0.0-7.0); HEMATOCRIT 30.9 % (37.0-47.0); HEMOGLOBIN 10.3 g/dl (12.0-16.0); LYMPHOCYTES # 2.7 10^3/ul (0.8-2.9); LYMPHOCYTES % 24.3 % (15.0-51.0); MEAN CORPUSCULAR HEMOGLOBIN 30.3 pg (29.0-33.0); MEAN CORPUSCULAR HGB CONC 33.3 g/dl (32.0-37.0); MEAN CORPUSCULAR VOLUME 90.9 fl (82.0-101.0); MONOCYTES % 8.5 % (0.0-11.0); NEUTROPHIL # 6.8 10^3/ul (1.6-7.5); NEUTROPHILS % 61.1 % (39.0-77.0); PLATELET COUNT 343 10^3/UL (140-415)
[2018-09-12 05:17] LABS: WHITE BLOOD COUNT 11.2 10^3/ul (4.8-10.8)
[2018-09-12 05:42] LABS: ANION GAP 9 (5-13); BLOOD UREA NITROGEN 15 mg/dl (7-20); CALCIUM 9.8 mg/dl (8.4-10.2); CARBON DIOXIDE 27 mmol/L (21-31); CHLORIDE 106 mmol/L (97-110); CREATININE 0.63 mg/dl (0.44-1.00); GLUCOSE 126 mg/dl (70-220); MAGNESIUM 2.1 mg/dl (1.7-2.5); PHOSPHORUS 3.5 mg/dl (2.5-4.9); POTASSIUM 4.5 mmol/L (3.5-5.1); SODIUM 142 mmol/L (135-144)
[2018-09-12 06:13] LABS: LACTIC ACID 2.9 mmol/L (0.5-2.0)
[2018-09-12] MEDS: INSULIN ASPART [NOVOLOG] 3 ML PEN SC ×4 (07:51→21:00)
[2018-09-12] MEDS: REPAGLINIDE 1 MG TAB PO ×3 (07:52→17:03)
[2018-09-12] MEDS: metFORMIN 500 MG TAB PO ×2 (07:52→17:04)
[2018-09-12] MEDS: LOSARTAN 50 MG TAB PO (08:35)
[2018-09-12] MEDS: LINAGLIPTIN 5 MG TABLET PO (08:35)
[2018-09-12] MEDS: CILOSTAZOL 100 MG TAB PO ×2 (08:35→21:19)
[2018-09-12] MEDS: FAMOTIDINE 20 MG TAB PO ×2 (08:35→21:19)
[2018-09-12] MEDS: predniSONE 10 MG TAB PO (09:12)
[2018-09-12] MEDS ORDERED: VANCOMYCIN IV PER PHARMACY XX (09:30)
[2018-09-12] MEDS: BUDESONIDE (NEB) 0.5MG/2ML AMP HHN ×2 (10:16→21:22)
[2018-09-12] MEDS: PIPER-TAZO 3.375 GM IV (PMX) 100 ML IVPB ×3 (11:17→23:56)
[2018-09-12] MEDS: VANCOMYCIN 1.5 GM in SOD CHLORIDE 0.9% 250 ML IVPB (11:57)
[2018-09-12] MEDS: EZETIMIBE 10 MG TAB PO (21:19)
[2018-09-12] MEDS: MONTELUKAST 10 MG TAB PO (21:19)
[2018-09-12] MEDS: ATORVASTATIN 10 MG TAB PO (21:19)
[2018-09-13] MEDS: LEVALBUTEROL (NEB) 1.25 MG/0.5 ML AMP HHN ×3 (01:28→13:38)
[2018-09-13] MEDS: ACCU-CHEK XX (02:00)
[2018-09-13 05:37] LABS: ADD MAN DIFF? NO
[2018-09-13] MEDS: PIPER-TAZO 3.375 GM IV (PMX) 100 ML IVPB (05:44)
[2018-09-13 05:47] LABS: WHITE BLOOD COUNT 10.9 10^3/ul (4.8-10.8)
[2018-09-13 05:47] LABS: BASOPHIL # 0.1 10^3/ul (0.0-0.1); BASOPHILS % 0.7 % (0.0-2.0); EOSINOPHILS # 0.2 10^3/ul (0.0-0.5); EOSINOPHILS % 1.7 % (0.0-7.0); HEMATOCRIT 31.7 % (37.0-47.0); HEMOGLOBIN 10.5 g/dl (12.0-16.0); LYMPHOCYTES # 2.9 10^3/ul (0.8-2.9); LYMPHOCYTES % 26.8 % (15.0-51.0); MEAN CORPUSCULAR HEMOGLOBIN 30.1 pg (29.0-33.0); MEAN CORPUSCULAR HGB CONC 33.1 g/dl (32.0-37.0); MEAN CORPUSCULAR VOLUME 90.8 fl (82.0-101.0); MONOCYTES % 9.3 % (0.0-11.0); NEUTROPHIL # 6.3 10^3/ul (1.6-7.5); NEUTROPHILS % 57.6 % (39.0-77.0); NUCLEATED RED BLOOD CELLS% 0.2 /100WBC (0.0-0.0); PLATELET COUNT 354 10^3/UL (140-415); RED BLOOD COUNT 3.49 10^6/ul (4.20-5.40); RED CELL DISTRIBUTION WIDTH 13.7 % (11.5-14.5)
[2018-09-13 06:08] LABS: ANION GAP 10 (5-13); BLOOD UREA NITROGEN 15 mg/dl (7-20); CALCIUM 9.9 mg/dl (8.4-10.2); CARBON DIOXIDE 28 mmol/L (21-31); CHLORIDE 106 mmol/L (97-110); GLUCOSE 87 mg/dl (70-220); MAGNESIUM 2.1 mg/dl (1.7-2.5); PHOSPHORUS 3.8 mg/dl (2.5-4.9); POTASSIUM 4.4 mmol/L (3.5-5.1); SODIUM 144 mmol/L (135-144)
[2018-09-13] MEDS: BUDESONIDE (NEB) 0.5MG/2ML AMP HHN (07:55)
[2018-09-13] MEDS: INSULIN ASPART [NOVOLOG] 3 ML PEN SC ×2 (08:00→11:49)
[2018-09-13] MEDS: LINAGLIPTIN 5 MG TABLET PO (08:09)
[2018-09-13] MEDS: metFORMIN 500 MG TAB PO (08:10)
[2018-09-13] MEDS: FAMOTIDINE 20 MG TAB PO (08:10)
[2018-09-13] MEDS: predniSONE 10 MG TAB PO (08:10)
[2018-09-13] MEDS: REPAGLINIDE 1 MG TAB PO ×2 (08:10→11:53)
[2018-09-13] MEDS: LOSARTAN 50 MG TAB PO (08:11)
[2018-09-13] MEDS: CILOSTAZOL 100 MG TAB PO (08:13)
[2018-09-13] MEDS: VANCOMYCIN 1 GM 250 ML IVPB (10:30)
[2018-09-13] MEDS: METOPROLOL 25 MG TAB PO (10:31)
== END 2018-09-13 14:08 | disposition left against medical advice (07) | DRG 202 ==
LOC: E/R 08:17 → 6WM 14:10
PROC: 3E0F7GC Introduction of Other Therapeutic Substance into Respiratory Tract, Via Natural or Artificial Opening (ICD-10-PCS; principal; 2018-09-09)
DX: J45.901 Unspecified asthma with (acute) exacerbation (principal); E87.2 Acidosis; I73.9 Peripheral vascular disease, unspecified; R00.0 Tachycardia, unspecified; E78.5 Hyperlipidemia, unspecified; I10 Essential (primary) hypertension
CPT/HCPCS: 36415; 71045; 80048; 80053; 81001; 82962; 83036; 83605; 83735; 83880; 84100; 84484; 85025; 85610; 85730; 87040; 87086; 87400; 93005; 94640; 94644; 94664; 96372; 96374; 99285-25